=== PATIENT | male | born 1965 | race Two or more races ===

== ENCOUNTER 2019-01-20 08:08 | Emergency (ER) | payer OTHER ==
[~2019-01-20] VITALS: Ht 180.3 cm; Wt 78.5 kg
[2019-01-20 08:14] VITALS: BP 131/85
--- NOTE | 2019-01-20 08:24 | NUR ---
THIS IS A 53 YEAR OLD MALE WHO C/O OF "I HAVE PAIN IN THE SCIATIC NERVE (WORSE WITH SITTING & LAYING DOWN) AND I CAN'T SLEEP"
[2019-01-20] MEDS ORDERED: KETOROLAC 30 MG/1 ML ONE (08:46)
[2019-01-20] MEDS ORDERED: KETOROLAC 30 MG/1 ML IM ONE (09:00)
--- NOTE | 2019-01-20 10:12 | NUR ---
PT STATES PAIN IS BETTER AFTER MEDICATION 09/26
[2019-01-20 10:29] LABS: MICROSCOPIC NOT IND
[2019-01-20 10:30] LABS: CULTURE INDICATED? NO
--- NOTE | 2019-01-20 10:57 | NUR ---
DPatient/Caregiver given discharge instructions and they have confirmed that they understand the instructions. Patient ambulatory with steady gait.
== END 2019-01-20 10:58 | disposition home or self-care (01) ==
LOC: ED 09:12
DX: M54.42 Lumbago with sciatica, left side (principal)
CPT/HCPCS: 72110; 81003; 96372; 99284; J1885